=== PATIENT | female | born 1970 ===

== ENCOUNTER 2023-09-17 10:53 | Emergency (ER) | payer OTHER ==
[2023-09-17] MEDS ORDERED: Cyclobenzaprine 10 MG Tab ONE (11:15)
[2023-09-17] MEDS ORDERED: predniSONE 10 MG Tab ONE (11:15)
== END 2023-09-17 11:21 | disposition home or self-care (01) ==
LOC: LB.ED 10:53
DX: S46.911D Strain of unspecified muscle, fascia and tendon at shoulder and upper arm level, right arm, subsequent encounter (principal); X50.0XXA Overexertion from strenuous movement or load, initial encounter
CPT/HCPCS: 99283; A9270-GY; J7512